=== PATIENT | male | born 1985 | race Caucasian/White ===

== ENCOUNTER 2020-06-04 15:38 | Emergency (ER) | payer OTHER, SELFPAY ==
[2020-06-04 15:46] VITALS: BP 126/73; PULSE 91; RESP 18; TEMP 37.1; O2SAT 96
--- NOTE | 2020-06-04 16:00 | DI.CT_ITS ---
EXAM: CT FACIAL WO CLINICAL HISTORY: trauma. TECHNIQUE: Imaging Protocol: Axial computed tomography images with coronal and sagittal reformatted images were created and reviewed CONTRAST MATERIAL: Noncontrast COMPARISON: No exams were available for comparison FINDINGS: Facial Bones: There is a minimally depressed fracture of the floor of the left orbit which extends t o involve the anterior wall of the left maxillary sinus. There is some hemorrhage within the left ma xillary sinus and mucosal thickening of the left ethmoid sinuses. Mastoids: Unremarkable. Globes, extraocular muscles, optic nerves and retrobulbar fat: Normal. Upper aerodigestive tract: Normal. Mandible and bilateral temporomandibular joints: Normal. Soft tissues: Soft tissue swelling is noted anterior to the left maxillary sinus. IMPRESSION: Mildly depressed fracture of the left orbital floor.. RADIATION DOSE DELIVERED: Total DLP DATA REPOSITORY: All CT scans at this facility are submitted to the National Radiology Data Registry (NRDR) Dose Index Registry (DIR) with the [employer] ([employer]). RADIATION OPTIMIZATION: All CT scans at this facility use at least one of these dose optimization te chniques: automated exposure control; mA and/or kV adjustment per patient size (includes targeted exa ms where dose is matched to clinical indication); or iterative reconstruction.
--- NOTE | 2020-06-04 16:10 | ED.GENADUL_ITS ---
Discharge Plan Disposition Patient Disposition: HOME Condition: Fair Discharge Details Chief Complaint: EyeProblem Clinical Impression: Orbit fracture, left Primary Care Provider: Addis Garvey ED Provider: Rafaela Garcia Home Meds and New Rx's Prescriptions: No Action No Known Home Meds RF: 0 Discharge Instructions Instructions: Facial Fracture (ED), Head Injury (ED) Additional Instructions: Continue to ice affected area 5-6 times daily 20 to 30 minutes at a time Continues acetaminophen and/or ibuprofen as needed for pain. See ophthalmology immediately for any visual loss otherwise can follow-up with optometry calling tomorrow morning for a follow-up appointment. Wash wound daily with warm water rinse well pat dry can add dry dressing to protect Referrals: Addis Garvey [Primary Care Provider] - (Call first thing tomorrow morning for follow-up appointment) Discharge Data Discharge Date/Time-TO BE ENTERED AT DEPARTURE: 06/04/20 18:44 Medical Decision Making Patient presents with isolated injury to left eye. Softball hit while he was playing [employer]. There was no LOC he has extensive hematoma/swelling eye exam is otherwise unremarkable. Will obtain CT facial bones to rule out fracture. HPI General Mode of arrival: ambulatory . Date/Time Provider Initiated Documentation: 06/04/20 15:54 . Limitations to Documentation: no limitations . Information obtained by: patient . HPI Narrative: This is a 34-year-old male with no past medical history who presents to the emergency department after being struck in the left eye with a softball while playing second base. There was no LOC it did not knock him down to the ground. There was no other injuries noted. His eye is swollen shut. He has no nausea vomiting no headache. He was in his usual state of health with no recent medical issues Related Data Home Medications Medication Instructions Recorded Confirmed Unknown [No Known Home Meds] 06/04/20 06/04/20 Allergies Allergy/AdvReac Type Severity Reaction Status Date / Time No Known Allergies Allergy Unverified 06/04/20 15:50 General Stated Complaint: EyeProblem AMADA: 3 Review of Systems Constitutional Constitutional: Denies headache(s) Eyes Eyes: Denies eye discharge, Reports eye pain and Denies photophobia Comments: Extensive hematoma/swelling/bruising to the entire left eye ENT Ears, Nose, Mouth, and Throat: Denies dizziness and Denies headache(s) Cardiovascular Cardiovascular: Denies chest pain and Denies dyspnea Respiratory Respiratory: Denies cough and Denies dyspnea Gastrointestinal Gastrointestinal: Denies nausea Musculoskeletal Musculoskeletal: Denies abnormal gait Neurologic Neurologic: Denies abnormal speech, Denies abnormal gait, Denies confusion, Denies dizziness and Denies headache(s) Psychiatric Psychiatric: Denies confusion Hematologic/Lymphatic Hematologic/Lymphatic: Denies easy bleeding and Denies easy bruising PFSH Social History Smoking/Tobacco Use Status: Current every day Tobacco Type: smokeless tobacco Alcohol Intake: current Alcohol Intake frequency: holidays/special occasions only Drug use: Never Substance use type: does not use Do you feel safe at home: Yes Do you feel safe in your relationship?: Yes Exam Const General: cooperative, healthy appearing, comfortable and no acute distress (Quietly holding ice pack to his left eye, declines pain medications) Nutritional Appearance: average body habitus Orientation: alert, awake and oriented x3 HENMT Head: normal to inspection, signs of trauma and hematoma Mouth: oral mucosae normal Eyes Alignment and Position: alignment normal Eyelids: eyelid abnormality left upper eyelid swelling and tenderness and left lower eyelid laceration (Abrasion) not involving eyelid margin, swelling and tenderness Conjunctivae: conjunctivae normal Sclera: sclerae normal Cornea: corneas normal Pupils: PERRL EOM: EOM intact bilaterally and No nystagmus Neck Neck: normal visual inspection and nontender (No C-spine tenderness to palpation) Resp Effort & Inspection: normal respiratory effort Back/Spine/Pelvis Back: no CVA tenderness Cervical Spine: normal cervical lordosis Thoracic/Lumbar Spine: thoracic and lumbar spine normal to inspection Skin General skin exam: ecchymosis (Extensive over the left eye upper and lower and lid) Lesions: lesion noted (Abrasion below left eye) Neuro General: patient alert, patient awake and patient oriented x3 Cranial Nerves: CN's II-XI intact bilaterally and no nystagmus Cognition: normal cognition Speech: speech normal Gait: normal gait Motor: muscle tone normal throughout Sensory Exam: no sensory deficits noted Extrem General: normal to inspection, full ROM and no pedal edema Course Vital Signs Vital signs: Vital Signs Temperature 37.1 C 06/04/20 15:46 Pulse 91 H 06/04/20 15:46 Respiratory Rate 18 06/04/20 15:46 Blood Pressure 126/73 06/04/20 15:46 Pulse Oximetry 96 06/04/20 15:46 Temperature 37.1 C 06/04/20 15:46 Temperature Source Temporal Artery Scan 06/04/20 15:46 Pulse 91 H 06/04/20 15:46 Respiratory Rate 18 06/04/20 15:46 Respiratory Effort Non-Labored 06/04/20 15:50 Blood Pressure 126/73 06/04/20 15:46 Blood Pressure Position Sitting 06/04/20 15:46 Pulse Oximetry 96 06/04/20 15:46 Oxygen Delivery Method Room Air 06/04/20 15:46 Oxygen Flow Rate 0 06/04/20 15:46 Pain Level 5 06/04/20 15:46
--- NOTE | 2020-06-04 16:30 | DI.VRAD_ITS ---
PROCEDURE INFORMATION: Exam: CT Maxillofacial Without Contrast Exam date and time: 06/04/2020 4:17 PM Age: 34 years old Clinical indication: Injury or trauma; Injury history: Hit by baseball; Initial encounter; Blunt trauma (contusions or hematomas); Orbit/periorbital; Left TECHNIQUE: Imaging protocol: Computed tomography images of the face without contrast. COMPARISON: No relevant prior studies available. FINDINGS: Orbits: Globes are unremarkable. Bones/joints: Displaced acute fracture of the left orbital floor extending to involve the superior aspect of the lateral anterior wall of the left maxillary sinus. Sinuses: Hemorrhage within the left maxillary sinus. Soft tissues: Left periorbital soft tissue hematoma. IMPRESSION: Left periorbital soft tissue hematoma. Displaced acute fracture of the left orbital floor extending to involve the superior aspect of the lateral anterior wall of the left maxillary sinus. Intraorbital contents are intact. Dictated and Authenticated by: Zackery Torres MD. Ordering:SKYLER Russo MD
== END 2020-06-04 18:44 | disposition home or self-care (01) ==
PROVIDERS: Emergency Provider Nurse Practitioner Acute Care; PCP Family Medicine
DX: S02.32XA Fracture of orbital floor, left side, initial encounter for closed fracture (principal); W21.03XA Struck by baseball, initial encounter; Y93.64 Activity, baseball
CPT/HCPCS: 99284; 70486